=== PATIENT | female | born 1945 | race African-American/Black ===

== ENCOUNTER 2020-06-19 08:24 | Emergency (ER) | payer OTHER ==
[~2020-06-19] VITALS: Ht 167.6 cm; Wt 75.0 kg
[2020-06-19 09:21] LABS: BASOPHILS % 0.7 % (0.0-2.0); HEMATOCRIT. 40.3 % (36.0-48.0); HEMOGLOBIN. 13.2 g/dL (12.0-16.0); LYMPHOCYTES % 24.9 % (20.0-50.0); MEAN CORPUSCULAR HEMOGLOBIN 29.1 pg (28.0-32.0); MEAN CORPUSCULAR VOLUME 88.8 fL (81.0-99.0); MEAN PLATELET VOLUME 8.3 fl (7.4-10.4); MONOCYTES % 4.5 % (2.0-8.0); NEUTROPHILS % 63.9 % (40.0-76.0); PLATELET 162 x1000/uL (130-400); RED BLOOD CELL COUNT 4.54 mill/uL (4.2-5.4); RED CELL DISTRIBUTION WIDTH 15.8 % (11.6-14.6)
[2020-06-19 09:26] LABS: CHLORIDE 114 mEq/L (98-107)
[2020-06-19 11:00] VITALS: BP 155/91
[2020-06-19] MEDS ORDERED: P50 MT (11:03)
[2020-06-19] MEDS ORDERED: ALBU18HF2 IH (11:03)
== END 2020-06-19 12:30 | disposition home or self-care (01) ==
LOC: ER 08:24
DX: R06.02 Shortness of breath (principal); J44.9 Chronic obstructive pulmonary disease, unspecified; Z88.6 Allergy status to analgesic agent; Z88.5 Allergy status to narcotic agent; Z86.19 Personal history of other infectious and parasitic diseases
CPT/HCPCS: 36415; 71045; 80053; 83880; 84484; 85025; 93005; 99285

== ENCOUNTER 2021-12-22 23:04 | Emergency (ER) | payer OTHER ==
[~2021-12-22] VITALS: Ht 165.1 cm; Wt 88.0 kg
[~2021-12-22 23:04] MED LIST: ALBU18HF2 IH; P50 MT
[2021-12-23] MEDS ORDERED: IBUPROFEN 600MG TABLET PO ONE
[2021-12-23] MEDS ORDERED: MORPHINE SULFATE 4 MG/ML CPJ (NOT FOR IM USE) IV NR (03:30)
[2021-12-23 04:59] LABS: HEMATOCRIT 37.2 % (36.0-48.0); HEMOGLOBIN 12.3 g/dL (12.0-16.0); MEAN CORPUSCULAR HEMOGLOBIN 30.1 pg (28.0-32.0); PLATELET 169 x1000/uL (130-400); RED BLOOD CELL COUNT 4.09 mill/uL (4.2-5.4); RED CELL DISTRIBUTION WIDTH 14.5 % (11.6-14.6)
[2021-12-23 05:00] VITALS: BP 124/65
[2021-12-23 05:11] LABS: CHLORIDE 109 mEq/L (98-107)
== END 2021-12-23 06:05 | disposition short-term general hospital (02) ==
LOC: ER 23:04
DX: S22.42XA Multiple fractures of ribs, left side, initial encounter for closed fracture (principal); S22.038A Other fracture of third thoracic vertebra, initial encounter for closed fracture; W18.39XA Other fall on same level, initial encounter; Y93.89 Activity, other specified; Y92.89 Other specified places as the place of occurrence of the external cause; Y99.8 Other external cause status; J44.9 Chronic obstructive pulmonary disease, unspecified; Z87.891 Personal history of nicotine dependence; Z20.822 Contact with and (suspected) exposure to COVID-19
CPT/HCPCS: 36415; 71250; 80053; 85027; 87426; 96374; 99284; C9803; J2270